=== PATIENT | female | born 1970 | race Caucasian/White ===

== ENCOUNTER → 2017-02-15 | Outpatient (CLI) | payer OTHER ==
[~2017-02-15] MED LIST: ADIPEX-P37.5 MG PO; ALEVE 220MG220 MG PO; AMBIEN 10MG10 MG PO; AMITRIPTYLINE H10 M1; AMOXICILLIN 50500 MG; ATIVAN 0.50.5 MG/TAB PO; BELVIQ; COLESTID 1GM1 G PO; CYMBALTA 20MG20 MG; CYMBALTA 60MG60 MG PO; ESTRACE 1MG1 MG/TAB PO; ESTRACE2 MG PO; ETOLDOLAC400 MG PO; FASTIN30 MG PO; FLEXERIL 1010 MG/TAB PO; FLEXERIL5 MG; GUAIFEN/CODEIN120 ML PO; LEXAPRO 10MG10 MG PO; LORTAB 10/500 51 TAB PO; LORTAB 5/500 501 TAB PO; MULTIVITAMIN FO1 CAP PO; NEURONTIN100 MG/CAP; NO HOME MEDICATIONS; NORFLEX 10100 MG/TAB PO; PERCOCET 325 MG1 TA2 PO; PHENTERMINE15 MG PO; RITALIN SR20 MG PO; VITAMIN C500 MG PO; VIVELLE0.025 MG/2; [UNRECOGNIZED DRUG - OTHER] PO
== END ==
LOC: MC.RAD 01-12 14:00
DX: Z12.31 Encounter for screening mammogram for malignant neoplasm of breast (principal); Z98.82 Breast implant status